=== PATIENT | female | born 1955 | race Caucasian/White ===

== ENCOUNTER 2016-08-25 08:54 | Outpatient (CLI) | payer OTHER ==
[2016-08-25 10:24] LABS: ALT (SGPT) 103 U/L (0-55); AST (SGOT) 51 U/L (5-34); Albumin 4.1 g/dL (3.5-5.0); Alkaline Phosphatase 121 U/L (40-150); Anion Gap 15 mmol/L (10-20); BUN (Urea Nitrogen) 12 mg/dL (9.8-20.1); Calc. Creatinine Clearance 0 mL/min (70-130); Calcium 9.3 mg/dL (7.8-10.44); Carbon Dioxide 24 mmol/L (22-29); Cardiac Risk 2.9 (Less than 4.5); Chloride 110 mmol/L (98-107); Cholesterol 114 mg/dL (< 200 Desired); Estimated GFR-MDRD Greater than 90; Globulin 2.3 g/dL (2.4-3.5); Glucose 98 mg/dL (70-105); HDL Cholesterol 40 mg/dL (>60 Neg Risk); LDL Cholesterol, Calculated 58 mg/dL; Potassium 4.1 mmol/L (3.5-5.1); Protein, Total 6.4 g/dL (6.0-8.3); Sodium 145 mmol/L (136-145); Triglycerides 82 mg/dL (Less than 150)
== END 2016-08-25 08:55 | disposition home or self-care (01) ==
LOC: BURLAB 08:54
PROVIDERS: ATTEND Family Medicine
DX: E78.5 Hyperlipidemia, unspecified (principal); E23.6 Other disorders of pituitary gland
CPT/HCPCS: 36415; 80053; 80061

== ENCOUNTER 2016-10-24 09:39 | Outpatient (CLI) | payer OTHER ==
[2016-10-24 11:03] LABS: ALT (SGPT) 53 U/L (8-55); AST (SGOT) 32 U/L (5-34); Albumin 3.7 g/dL (3.5-5.0); Alkaline Phosphatase 90 U/L (40-150); Bilirubin, Direct 0.4 mg/dL (0.1-0.3); Protein, Total 5.6 g/dL (6.0-8.3)
== END 2016-10-24 09:40 | disposition home or self-care (01) ==
LOC: HPCALD 09:39
PROVIDERS: ATTEND Family Medicine
DX: R74.8 Abnormal levels of other serum enzymes (principal)
CPT/HCPCS: 36415; 80076

== ENCOUNTER 2016-12-05 07:36 | Outpatient (CLI) | payer OTHER ==
[2016-12-05 08:05] LABS: #Basophils 0.1 thou/uL (0.0-0.2); #Eosinphils 0.1 thou/uL (0.0-0.7); #Lymphocytes 2.1 thou/uL (1.20-3.40); #Monocytes 0.6 thou/uL (0.11-0.59); #Neutrophils 3.9 thou/uL (1.40-6.50); %Basophils 0.9 % (0.0-1.0); %Eosinophils 1.7 % (0.0-10.0); %Lymphocytes 31.2 % (21.0-51.0); %Monocytes 8.4 % (0.0-10.0); %Neutrophils 57.8 % (42.0-75.0); Hemoglobin 14.1 g/dL (12.0-16.0); Mean Corpuscular Hemoglobin 30.6 pg (27.0-31.0); Mean Platelet Volume 9.3 fL (7.4-10.4); Platelet Count 194 thou/uL (130-400); RBC Distribution Width 11.9 % (11.5-14.5); Red Blood Cell (RBC) Count 4.59 mill/uL (4.20-5.40); White Blood Cell (WBC) Count 6.7 thou/uL (4.8-10.8)
[2016-12-05 08:30] LABS: ALT (SGPT) 51 U/L (8-55); AST (SGOT) 31 U/L (5-34); Albumin 3.7 g/dL (3.5-5.0); Alkaline Phosphatase 96 U/L (40-150); Anion Gap 13 mmol/L (10-20); BUN (Urea Nitrogen) 8 mg/dL (9.8-20.1); Calc. Creatinine Clearance 0 mL/min (70-130); Calcium 9.6 mg/dL (7.8-10.44); Carbon Dioxide 26 mmol/L (22-29); Chloride 109 mmol/L (98-107); Estimated GFR-MDRD Greater than 90; Globulin 2.2 g/dL (2.4-3.5); Glucose 100 mg/dL (70-105); Potassium 4.1 mmol/L (3.5-5.1); Protein, Total 5.9 g/dL (6.0-8.3); Sodium 144 mmol/L (136-145)
[2016-12-05 08:44] LABS: Free T4 (Free Thyroxine) 2.16 ng/dL (0.70-1.48); Thyroid Stimulating Hormone Less than 0.0025 uIU/mL (0.35-4.94)
[2016-12-05 18:06] LABS: Hep C IgG Ab Non-Reactive (NonReactive); Hep C Index 0.12 S/CO (0-0.79)
== END 2016-12-05 07:37 | disposition home or self-care (01) ==
LOC: BURLAB 07:36
PROVIDERS: ATTEND Internal Medicine Endocrinology, Diabetes & Metabolism
DX: E23.6 Other disorders of pituitary gland (principal); R94.6 Abnormal results of thyroid function studies
CPT/HCPCS: 36415; 80053; 84439; 84443; 84481; 85025; 86803

== ENCOUNTER 2017-01-14 07:47 | Outpatient (CLI) | payer OTHER ==
[2017-01-14 09:11] LABS: Free T4 (Free Thyroxine) 2.55 ng/dL (0.70-1.48); Thyroid Stimulating Hormone Less than 0.0025 uIU/mL (0.35-4.94)
== END 2017-01-14 07:48 | disposition home or self-care (01) ==
LOC: BURLAB 07:47
PROVIDERS: ATTEND Internal Medicine Endocrinology, Diabetes & Metabolism
DX: R94.6 Abnormal results of thyroid function studies (principal)
CPT/HCPCS: 36415; 84439; 84443; 84481

== ENCOUNTER 2017-02-03 11:44 | Outpatient (CLI) | payer OTHER ==
[2017-02-03 12:31] LABS: #Eosinphils 0.1 thou/uL (0.0-0.7); #Lymphocytes 2.7 thou/uL (1.20-3.40); #Monocytes 0.7 thou/uL (0.11-0.59); #Neutrophils 5.5 thou/uL (1.40-6.50); %Basophils 0.5 % (0.0-1.0); %Eosinophils 1.6 % (0.0-10.0); %Monocytes 7.2 % (0.0-10.0); %Neutrophils 60.6 % (42.0-75.0); Hemoglobin 14.1 g/dL (12.0-16.0); Mean Corpuscular HGB CONC 33.1 g/dL (32.0-36.0); Mean Corpuscular Hemoglobin 30.7 pg (27.0-31.0); Mean Corpuscular Volume 92.7 fl (81.0-99.0); Platelet Count 205 thou/uL (130-400); RBC Distribution Width 11.7 % (11.5-14.5); Red Blood Cell (RBC) Count 4.59 mill/uL (4.20-5.40); White Blood Cell (WBC) Count 9.1 thou/uL (4.8-10.8)
[2017-02-03 12:57] LABS: ALT (SGPT) 30 U/L (8-55); AST (SGOT) 20 U/L (5-34); Albumin 3.7 g/dL (3.5-5.0); Alkaline Phosphatase 121 U/L (40-150); Anion Gap 14 mmol/L (10-20); BUN (Urea Nitrogen) 9 mg/dL (9.8-20.1); Bilirubin, Total 0.6 mg/dL (0.2-1.2); Calc. Creatinine Clearance 0 mL/min (70-130); Calcium 9.1 mg/dL (7.8-10.44); Carbon Dioxide 24 mmol/L (22-29); Cardiac Risk 2.5 (Less than 4.5); Chloride 107 mmol/L (98-107); Cholesterol 131 mg/dl (< 200 Desired); Estimated GFR-MDRD Greater than 90; Globulin 2.1 g/dL (2.4-3.5); Glucose 78 mg/dL (70-105); HDL Cholesterol 53 mg/dL (>60 Neg Risk); LDL Cholesterol, Calculated 64 mg/dL; Potassium 4.4 mmol/L (3.5-5.1); Protein, Total 5.8 g/dL (6.0-8.3); Sodium 141 mmol/L (136-145); Triglycerides 68 mg/dL (Less than 150)
== END 2017-02-03 11:45 | disposition home or self-care (01) ==
LOC: HPCALD 11:44
PROVIDERS: ATTEND Family Medicine
DX: E78.5 Hyperlipidemia, unspecified (principal); I10 Essential (primary) hypertension
CPT/HCPCS: 80053; 80061; 85025

== ENCOUNTER 2017-04-28 11:23 | Outpatient (CLI) | payer OTHER ==
--- NOTE | 2017-04-28 19:23 | RAD ---
CHEST TWO VIEWS: 04/28/17 Comparison us made with a 02/08/15 study. The heart size is stable. There is no vascular congestion, edema, or pleural effusion. The lungs are clear. No infiltrate or mass was seen. The mediastinum was unremarkable. The visible portions of the thoracic spine were unremarkable. IMPRESSION: Stable exam with no acute findings. POS: HOME
== END 2017-04-28 11:24 | disposition home or self-care (01) ==
LOC: BURRAD 11:23
PROVIDERS: ATTEND Family Medicine
DX: M54.6 Pain in thoracic spine (principal); F17.200 Nicotine dependence, unspecified, uncomplicated
CPT/HCPCS: 71020

== ENCOUNTER 2017-06-16 07:39 | Outpatient (CLI) | payer OTHER ==
--- NOTE | 2017-06-16 21:05 | CT ---
CT ABDOMEN AND PELVIS WITHOUT AND WITH IV CONTRAST WITH ADDITIONAL SECTIONS 06/16/17 Comparison is made with the prior CT study of 03/06/15. There is a history of cystic lesions of the liver. The scan was initially done without IV contrast. A rterial and venous phase imaging was done after an injection of IV contrast. Reconstructions in multi ple planes were then accomplished. There are two cystic areas in the left lobe of the liver. The larger on measures 7.5 cm in size and t he smaller one adjacent to it measures 1.7 cm. This compares favorably with the sizes seen in 2015. I n fact, the smaller cyst has decreased in size slightly. Looking at the larger cyst, it does not show significant enhancement with addition of IV contrast. Precontrast average CT numbers were about 5 un its, and it showed 7 to 8 units postcontrast. There are no new cystic lesions in the liver. A tiny polanco bcentimeter one or two may be present in the posterior right lobe. The spleen is normal in size. The pancreas showed no sign of mass. The main pancreatic duct is a little more prominent than one usually sees but no other pathology was seen associated with it. The gallbladder contains no calcifications. The kidneys and adrenal glands were unremarkable. The aorta was normal in caliber and shows some mil d arteriosclerotic change distally. A moderate amount of fecal material is seen in the visible portio ns of colon. There is no distended bowel, free air or free fluid. IMPRESSION: At least two cystic structures in the left lobe of the liver which have changed minimally since 2015. There is no significant enhancement with IV contrast. A benign etiology would, therefore, be highly likely. POS: HOME
== END 2017-06-16 07:40 | disposition home or self-care (01) ==
LOC: BURCT 07:39
PROVIDERS: ATTEND Internal Medicine Gastroenterology
DX: K76.89 Other specified diseases of liver (principal)
CPT/HCPCS: 74170

== ENCOUNTER 2019-02-03 20:20 | Emergency (ER) | payer OTHER ==
--- NOTE | 2019-02-03 22:55 | RAD ---
LEFT ANKLE THREE VIEWS: 02/03/19 No acute fracture was seen. An irregularity along the interosseous margin of the distal fibula could be due to an old injury. The ankle joint itself shows no acute change. A tiny calcaneal spur was note d. There is a little bit of bony spurring at the tibiotalar joint. IMPRESSION: No acute bony findings. POS: HOME
== END 2019-02-03 20:52 | disposition home or self-care (01) ==
LOC: BURERS 20:20
DX: S93.402A Sprain of unspecified ligament of left ankle, initial encounter (principal); R73.03 Prediabetes; E78.00 Pure hypercholesterolemia, unspecified; F17.200 Nicotine dependence, unspecified, uncomplicated; Z79.899 Other long term (current) drug therapy; Z79.82 Long term (current) use of aspirin; Z79.84 Long term (current) use of oral hypoglycemic drugs; X50.9XXA Other and unspecified overexertion or strenuous movements or postures, initial encounter
CPT/HCPCS: 29515

== ENCOUNTER 2020-01-12 07:52 | Outpatient (CLI) | payer OTHER ==
--- NOTE | 2020-01-12 14:18 | CT ---
CT ABDOMEN AND PELVIS WITH CONTRAST: 01/12/20 Comparison is made with the prior study dated 06/16/17. The lung bases are clear. The liver contains a large cyst in the left lobe. It measures 6 cm today wh ich is slightly smaller than on the prior exam. No new lesions are seen. The spleen, pancreas, adrena l glands, kidneys, gallbladder, and abdominal aorta showed no acute findings. There appears to be a little thickening in the antrum of the stomach. This could be thickened mucosa, inflammatory change, neoplastic change or even residual food material. It is different than the prio r scan. Thus given the symptoms of epigastric pain, endoscopy might be considered to clear this area. The bowel shows no distention or wall thickening. There are no inflammatory or acute inflammatory ch anges in bowel. The appendix was identified and appears normal. No free fluid or free air was seen. CT of the pelvis shows no pelvic masses, fluid collections, or inflammatory changes. IMPRESSION: 1. Area of potential thickening in the antrum of the stomach not present before. This could also be artifactual with residual foot stuff. Given epigastric pain, consideration of endoscopy to clear the area is advised. 2. Large hepatic cyst, left lobe. Actually smaller than on the prior CT scan. Code T POS: HOME
== END 2020-01-12 07:53 | disposition home or self-care (01) ==
LOC: BURCT 07:52
PROVIDERS: ATTEND Family Medicine
DX: R10.9 Unspecified abdominal pain (principal); K31.89 Other diseases of stomach and duodenum; K76.89 Other specified diseases of liver
CPT/HCPCS: 74177

== ENCOUNTER 2020-05-22 11:51 | Outpatient (CLI) | payer OTHER ==
--- NOTE | 2020-05-22 15:27 | RAD ---
LEFT KNEE 2 VIEWS: DATE: 05/22/2020. FINDINGS: No fracture was present, but a sizable joint effusion was seen. The possibility of an internal deran gement should be considered. There is some minor medial joint space narrowing and the beginnings of some very tiny osteophytes, almost inconsequential in size. IMPRESSION: Joint effusion. POS: HOME
== END 2020-05-22 11:52 | disposition home or self-care (01) ==
LOC: BURRAD 11:51
PROVIDERS: ATTEND Family Medicine
DX: M25.462 Effusion, left knee (principal)

== ENCOUNTER 2022-04-08 08:49 | Outpatient (CLI) | payer OTHER | END 2022-04-08 08:50 | disposition home or self-care (01) | LOC: BURRAD 08:49 | PROVIDERS: ATTEND Physician Assistant | DX: Z12.2 Encounter for screening for malignant neoplasm of respiratory organs (principal) | CPT/HCPCS: 71046 ==